=== PATIENT | female | born 1970 | race Caucasian/White ===

== ENCOUNTER 2018-11-12 15:33 | Emergency (ER) | payer MEDICAID ==
--- NOTE | 2018-11-12 15:53 | EDM.PDOC ---
ED HPI GENERAL MEDICAL PROBLEM - General Chief Complaint: Upper Extremity Injury/Pain Stated Complaint: RT SHOULDER COMPLAINT Time Seen by Provider: 11/12/18 15:35 Source of Information: Reports: Patient History Limitations: Reports: No Limitations - History of Present Illness INITIAL COMMENTS - FREE TEXT/NARRATIVE: HISTORY AND PHYSICAL: History of present illness: Patient is a 48-year-old female presents to the ED today with concern of right shoulder pain. Patient states she was sleeping on the shoulder and when she woke up she had 10 out of 10 shoulder pain and feels like she can't move her shoulder due to pain. Patient states she took 2 tramadol, and one right before coming to the ED, that she had left over from a prior injury with minimal relief of her symptoms. Patient denies any direct trauma or injury to the shoulder or any prior injury. Patient denies any other symptoms or concerns. Patient has h/o hysterectomy. Patient denies fever, chills, chest pain, shortness of breath, or cough. Denies headache, neck stiff ness, change in vision, syncope, or near syncope. Denies nausea, vomiting, abdominal pain, diarrhea, constipation, or dysuria. Has not noted any blood in urine or stool. Patient has been eating and drinking appropriately. Review of systems: As per history of present illness and below otherwise all systems reviewed and negative. Past medical history: As per history of present illness and as reviewed below otherwise noncontributory. Surgical history: As per history of present illness and as reviewed below otherwise noncontributory. Social history: See social history for further information Family history: As per history of present illness and as reviewed below otherwise noncontributory. Physical exam: General: Patient is alert, oriented, and in no acute distress. Patient sitting comfortably on exam table. HEENT: Atraumatic, normocephalic, pupils equal and reactive bilaterally, negative for conjunctival pallor or scleral icterus, mucous membranes moist, TMs normal bilaterally, throat clear, neck supple, nontender, trachea midline. No drooling or trismus noted. No meningeal signs. No hot potato voice noted. Lungs: Clear to auscultation, breath sounds equal bilaterally, chest nontender. Heart: S1S2, regular rate and rhythm without overt murmur Abdomen: Soft, nondistended, nontender. Negative for masses or hepatosplenomegaly. Negative for costovertebral tenderness. Pelvis: Stable nontender. Genitourinary: Deferred. Rectal: Deferred. Skin: Intact, warm, dry. No lesions or rashes noted. Extremities: Atraumatic, negative for cords or calf pain. Neurovascular unremarkable. No obvious deformity of the right shoulder or RUE. The right shoulder is non erythematous and not warm to the touch. Patient does have severe pain with both active and passive range of motion of the right shoulder. Patient does have full range of motion of right elbow wrist and digits without pain or difficulty. Radial pulses grossly intact of the right upper extremity with capillary refill less than 2 seconds. Neuro: Awake, alert, oriented. Cranial nerves II through XII unremarkable. Cerebellum unremarkable. Motor and sensory unremarkable throughout. Exam nonfocal. Notes: Dr. Perez verbally involved in patient care. Discussed the importance for follow-up with a primary care provider and orthopedic provider. Voices understanding and is agreeable to plan of care. Denies any further questions or concerns at this time. Diagnostics: Shoulder x-ray Therapeutics: Sling Prescription: Diclofenac Impression: Right shoulder pain Plan: 1. Rest, ice, elevate the affected extremity. You can apply ice 15 minutes on, 15 minutes off. Do small circles to bigger circles with the shoulder as discussed. 2. Tylenol as directed for pain management or discomfort. Take medication as prescribed. 3. Follow up with the Orthopedic provider and primary care provider as discussed. Return to the ED as needed and as discussed. Definitive disposition and diagnosis as appropriate pending reevaluation and review of above. right shoulder/arm Pain Score (Numeric/FACES): 10 - Related Data Allergies Allergy/AdvReac Type Severity Reaction Status Date / Time sulfamethoxazole Allergy Hives Verified 11/12/18 15:40 [From Bactrim] trimethoprim [From Bactrim] Allergy Hives Verified 11/12/18 15:40 Home Meds: Home Meds ARIPiprazole [Abilify] 1 tab PO DAILY 11/12/18 [History] [place] Carbonate 100 mg PO DAILY 11/12/18 [History] Omeprazole 40 mg PO DAILY 11/12/18 [History] Oxybutynin 4 mg PO DAILY 11/12/18 [History] Venlafaxine [Effexor] 250 mg PO DAILY 11/12/18 [History] atorvaSTATin [Lipitor] 10 mg PO DAILY 11/12/18 [History] Past Medical History HEENT History: Reports: None Cardiovascular History: Reports: High Cholesterol Respiratory History: Reports: Other (See Below) Other Respiratory History: emphysema Gastrointestinal History: Reports: GERD, Other (See Below) Other Gastrointestinal History: Barretts Disease Genitourinary History: Reports: None 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 Musculoskeletal History: Reports: None Neurological History: Reports: None Psychiatric History: Reports: Bipolar Endocrine/Metabolic History: Reports: None Hematologic History: Reports: None Immunologic History: Reports: None Oncologic (Cancer) History: Reports: None Dermatologic History: Reports: None - Infectious Disease History Infectious Disease History: Reports: Chicken Pox - Past Surgical History Head Surgeries/Procedures: Reports: None HEENT Surgical History: Reports: None Cardiovascular Surgical History: Reports: None Respiratory Surgical History: Reports: None GI Surgical History: Reports: None Female Surgical History: Reports: None Endocrine Surgical History: Reports: None Neurological Surgical History: Reports: None Musculoskeletal Surgical History: Reports: None Oncologic Surgical History: Reports: None Dermatological Surgical History: Reports: None Social & Family History - Family History Family Medical History: Noncontributory - Tobacco Use Smoking Status *Q: Current Every Day Smoker Years of Tobacco use: 21 Packs/Tins Daily: 1 Second Hand Smoke Exposure: Yes - Caffeine Use Caffeine Use: Reports: None - Recreational Drug Use Recreational Drug Use: Yes Recreational Drug Type: Reports: Marijuana/Hashish Recreational Drug Use Frequency: Daily Review of Systems - Review of Systems Review Of Systems: ROS reveals no pertinent complaints other than HPI. ED EXAM, GENERAL - Physical Exam Exam: See Below (See dictation) Course - Vital Signs Last Recorded V/S: Last Vital Signs Temp 36.2 C 11/12/18 15:36 Pulse 70 11/12/18 15:36 Resp 18 11/12/18 15:36 BP 133/80 11/12/18 15:36 Pulse Ox 96 11/12/18 15:36 Departure - Departure Time of Disposition: 16:13 Disposition: Home, Self-Care 01 Clinical Impression: Right shoulder pain Qualifiers: Chronicity: acute Qualified Code(s): M25.511 - Pain in right shoulder - Discharge Information Referrals: PCP,Unknown [Primary Care Provider] - Forms: ED Department Discharge Additional Instructions: The following information is given to patients seen in the emergency department who are being discharged to home. This information is to outline your options for follow-up care. We provide all patients seen in our emergency department with a follow-up referral. The need for follow-up, as well as the timing and circumstances, are variable depending upon the specifics of your emergency department visit. If you don't have a primary care physician on staff, we will provide you with a referral. We always advise you to contact your personal physician following an emergency department visit to inform them of the circumstance of the visit and for follow-up with them and/or the need for any referrals to a consulting specialist. The emergency department will also refer you to a specialist when appropriate. This referral assures that you have the opportunity for follow-up care with a specialist. All of these measure are taken in an effort to provide you with optimal care, which includes your follow-up. Under all circumstances we always encourage you to contact your private physician who remains a resource for coordinating your care. When calling for follow-up care, please make the office aware that this follow-up is from your recent emergency room visit. If for any reason you are refused follow-up, please contact the [facility] at and asked to speak to the emergency department charge nurse. [facility] [address] [place] [id number] [address] [facility] [address] [place], [address] [place] [address] [address] Alcaraz, Orthopedist [facility] [address] [place] [address] Dr Garcia - Dr Barrios - Dr Parada [facility] [address] [place] [address] [facility] [address] [place] [address] 1. Rest, ice, elevate the affected extremity. You can apply ice 15 minutes on, 15 minutes off. Do small circles to bigger circles with the shoulder as discussed. 2. Tylenol as directed for pain management or discomfort. Take medication as prescribed. 3. Follow up with the Orthopedic provider and primary care provider as discussed. Return to the ED as needed and as discussed.
--- NOTE | 2018-11-12 16:07 | CR ---
INDICATION: Shoulder pain TECHNIQUE: Shoulder radiograph 3 views right COMPARISON: None FINDINGS: Bone: No acute fractures or aggressive bone lesions are identified. Joint: The glenohumeral is unremarkable. The acromioclavicular joint is unremarkable. Soft tissue: Unremarkable. The visualized hemithorax is unremarkable in appearance. No radiopaque foreign bodies are seen. IMPRESSION: 1. No acute osseous injuries or abnormalities are noted. Dictated by: Vik Sainz MD @ 11/12/2018 16:06:06 (Electronically Signed)
== END 2018-11-12 17:02 | disposition home or self-care (01) ==
LOC: MW.ED 15:33
DX: M25.511 Pain in right shoulder (principal); F17.210 Nicotine dependence, cigarettes, uncomplicated; K21.9 Gastro-esophageal reflux disease without esophagitis; F31.9 Bipolar disorder, unspecified; Z79.899 Other long term (current) drug therapy
CPT/HCPCS: 73030-26-RT; 73030-RT; 99283-25